=== PATIENT | female | born 1955 | race African-American/Black ===

== ENCOUNTER 2017-01-07 11:48 | Emergency (ER) | payer MEDICAID | END 2017-01-07 13:54 | disposition home or self-care (01) | LOC: D.ER 11:48 | DX: J20.9 Acute bronchitis, unspecified (principal); J01.90 Acute sinusitis, unspecified; F17.200 Nicotine dependence, unspecified, uncomplicated ==

== ENCOUNTER 2017-01-12 10:06 | Emergency (ER) | payer MEDICAID | END 2017-01-12 13:36 | disposition home or self-care (01) | LOC: D.ER 10:06 | DX: J20.9 Acute bronchitis, unspecified (principal); J01.90 Acute sinusitis, unspecified; I10 Essential (primary) hypertension; F17.200 Nicotine dependence, unspecified, uncomplicated ==

== ENCOUNTER 2018-03-31 10:50 | Emergency (ER) | payer MEDICAID ==
[2018-03-31 12:21] LABS: BASOPHILS 0.1 % (0-2); EOSINOPHILS 0.1 % (0-7); HEMATOCRIT 34.2 % (36.0-48.0); HEMOGLOBIN 10.8 g/dL (12-16); IMMATURE GRANULOCYTES 0.3 % (0-5); LYMPHOCYTES 6.7 % (15-50); MCH 24.9 pg (26.0-34.0); MCHC 31.6 g/dL (31.0-37.0); MCV 78.8 fL (80.0-100.0); MEAN PLATELET VOLUME 9.3 fL (7.4-10.4); MONOCYTES 9.2 % (2-11); NEUTROPHILS 83.6 % (40-80); PLATELET COUNT 239 10x3/uL (130-400); RBC 4.34 10x6/uL (4.00-5.40); RDW 13.7 % (11.5-14.5); WBC 15.9 10x3/uL (4.8-10.8)
[2018-03-31 12:34] LABS: ALBUMIN 3.1 g/dL (3.4-5.0); ALKALINE PHOSPHATASE 76 U/L (46-116); ALT (SGPT) 19 U/L (10-68); BILIRUBIN - TOTAL 0.82 mg/dL (0.2-1.3); CALC OSMOLALITY 269 mosm/kg (275-300); CALCIUM 8.8 mg/dL (8.5-10.1); CARBON DIOXIDE 29.5 mmol/L (21.0-32.0); CHLORIDE - SERUM 103 mmol/L (98-107); CREATININE - SERUM 0.7 mg/dL (0.6-1.3); GLUCOSE 92 mg/dL (74-106); POTASSIUM - SERUM 3.2 mmol/L (3.5-5.1); PROTEIN - SERUM 7.1 g/dL (6.4-8.2); SODIUM 136 mmol/L (136-145); UREA NITROGEN 8 mg/dL (7-18); eGFR NON AFRICAN AMERICAN 90 mL/min (90-120)
[2018-04-07 15:25] LABS: AEROBE ID Final report (())
== END 2018-03-31 15:30 | disposition critical access hospital (66) ==
LOC: D.ER 10:50
PROVIDERS: Physician Assistant
DX: J03.90 Acute tonsillitis, unspecified (principal); J36 Peritonsillar abscess; E87.6 Hypokalemia; K11.5 Sialolithiasis; I10 Essential (primary) hypertension

== ENCOUNTER 2018-04-14 11:48 | Emergency (ER) | payer MEDICAID | END 2018-04-14 13:39 | disposition home or self-care (01) | LOC: D.ER 11:48 | DX: J06.9 Acute upper respiratory infection, unspecified (principal); J20.9 Acute bronchitis, unspecified; I10 Essential (primary) hypertension ==

== ENCOUNTER 2018-06-12 09:52 | Emergency (ER) | payer MEDICAID ==
[~2018-06-12] VITALS: Ht 160 cm; Wt 63.6 kg
[2018-06-12 09:55] VITALS: Ht 160 cm; Wt 63.6 kg
[2018-06-12] MEDS ORDERED: TORADOL10 MG PO (11:10)
[2018-06-12 11:34] VITALS: BP 124/96
== END 2018-06-12 11:34 | disposition home or self-care (01) ==
LOC: D.ER 09:52
DX: S92.101A Unspecified fracture of right talus, initial encounter for closed fracture (principal); X50.1XXA Overexertion from prolonged static or awkward postures, initial encounter; Y93.89 Activity, other specified; Y92.019 Unspecified place in single-family (private) house as the place of occurrence of the external cause

== ENCOUNTER 2018-07-15 10:07 | Emergency (ER) | payer MEDICAID ==
[~2018-07-15] VITALS: Ht 160 cm; Wt 61.4 kg
[~2018-07-15 10:07] MED LIST: TORADOL10 MG PO
[2018-07-15 10:12] VITALS: Ht 160 cm; Wt 61.4 kg
[2018-07-15] MEDS ORDERED: AUGMENTIN 875-11 TAB PO (11:06)
[2018-07-15] MEDS ORDERED: NORCO 7.5/325 T1 TA1 PO (11:06)
[2018-07-15 11:38] VITALS: BP 181/101
== END 2018-07-15 11:39 | disposition home or self-care (01) ==
LOC: D.ER 10:07
DX: K12.2 Cellulitis and abscess of mouth (principal); M25.512 Pain in left shoulder

== ENCOUNTER 2018-07-24 10:41 | Emergency (ER) | payer MEDICAID ==
[~2018-07-24] VITALS: Ht 160 cm; Wt 59.1 kg
[~2018-07-24 10:41] MED LIST changes: +AUGMENTIN 875-11 TAB PO; +NORCO 7.5/325 T1 TA1 PO
[2018-07-24 11:01] VITALS: Ht 160 cm; Wt 59.1 kg
[2018-07-24] MEDS ORDERED: TORADOL10 MG PO (16:40)
[2018-07-24 17:02] VITALS: BP 122/088
== END 2018-07-24 17:05 | disposition home or self-care (01) ==
LOC: D.ER 10:41
DX: S60.011A Contusion of right thumb without damage to nail, initial encounter (principal); W23.0XXA Caught, crushed, jammed, or pinched between moving objects, initial encounter; Y93.89 Activity, other specified; Y92.89 Other specified places as the place of occurrence of the external cause; M25.512 Pain in left shoulder

== ENCOUNTER 2018-10-29 14:19 | Emergency (ER) | payer MEDICAID | END 2018-10-29 16:54 | disposition home or self-care (01) | LOC: D.ER 14:19 | DX: H66.91 Otitis media, unspecified, right ear (principal); J02.9 Acute pharyngitis, unspecified ==

== ENCOUNTER 2019-06-02 13:55 | Emergency (ER) | payer MEDICAID ==
[~2019-06-02] VITALS: Ht 160 cm; Wt 56.8 kg
[2019-06-02 14:00] VITALS: Ht 160 cm; Wt 56.8 kg
[2019-06-02] MEDS ORDERED: NAPROSYN500 MG PO (14:59)
[2019-06-02] MEDS ORDERED: CYCLOBENZAPRINE10 MG PO (14:59)
[2019-06-02 15:43] VITALS: BP 178/107
== END 2019-06-02 15:43 | disposition home or self-care (01) ==
LOC: D.ER 13:55
DX: M25.512 Pain in left shoulder (principal); M25.511 Pain in right shoulder; I10 Essential (primary) hypertension

== ENCOUNTER 2019-12-03 08:29 | Emergency (ER) | payer MEDICAID ==
[~2019-12-03] VITALS: Ht 160 cm; Wt 56.8 kg
[~2019-12-03 08:29] MED LIST changes: +CYCLOBENZAPRINE10 MG PO; +NAPROSYN500 MG PO
[2019-12-03 08:49] VITALS: Ht 160 cm; Wt 56.8 kg
[2019-12-03] MEDS ORDERED: CYCLOBENZAPRINE10 MG PO (09:15)
[2019-12-03] MEDS ORDERED: MEDROL DOSE PACK4 MG PO (09:15)
[2019-12-03] MEDS ORDERED: MECLIZINE HCL25 MG PO (09:15)
[2019-12-03 09:39] LABS: BASOPHILS 0.3 % (0-2); EOSINOPHILS 0.6 % (0-7); HEMATOCRIT 35.2 % (36.0-48.0); HEMOGLOBIN 11.1 g/dL (12-16); IMMATURE GRANULOCYTES 0.3 % (0-5); LYMPHOCYTES 23.8 % (15-50); MCH 24.5 pg (26.0-34.0); MCHC 31.5 g/dL (31.0-37.0); MCV 77.7 fL (80.0-100.0); MEAN PLATELET VOLUME 8.9 fL (7.4-10.4); RBC 4.53 10x6/uL (4.00-5.40); RDW 13.9 % (11.5-14.5); WBC 6.2 10x3/uL (4.8-10.8)
[2019-12-03 09:42] LABS: PLATELET COUNT 292 10x3/uL (130-400)
[2019-12-03 09:53] LABS: APTT 34.3 SECONDS (22.8-39.4); INR 0.99 (0.85-1.17); PROTIME 13.1 SECONDS (11.6-15.0)
[2019-12-03 09:55] LABS: CALC OSMOLALITY 284 mosm/kg (275-300); CALCIUM 8.7 mg/dL (8.5-10.1); CARBON DIOXIDE 27.3 mmol/L (21.0-32.0); CHLORIDE - SERUM 107 mmol/L (98-107); CREATININE - SERUM 0.9 mg/dL (0.6-1.3); GLUCOSE 102 mg/dL (74-106); POTASSIUM - SERUM 3.7 mmol/L (3.5-5.1); SODIUM 142 mmol/L (136-145); UREA NITROGEN 19 mg/dL (7-18); eGFR NON AFRICAN AMERICAN 67 mL/min (90-120)
[2019-12-03 10:10] LABS: ALBUMIN 3.1 g/dL (3.4-5.0); ALKALINE PHOSPHATASE 101 U/L (46-116); ALT (SGPT) 22 U/L (10-68); BILIRUBIN - TOTAL 0.29 mg/dL (0.2-1.3); CKMB 1.4 U/L (0.0-3.6); CREATINE KINASE 100 UL (21-215); MAGNESIUM - SERUM 1.8 mg/dL (1.8-2.4); TROPONIN-I < 0.017 ng/mL (0.000-0.060)
[2019-12-03 11:00] VITALS: BP 120/79
== END 2019-12-03 11:00 | disposition home or self-care (01) ==
LOC: D.ER 08:29
PROVIDERS: Family Medicine
DX: R42 Dizziness and giddiness (principal); G89.29 Other chronic pain; M06.9 Rheumatoid arthritis, unspecified; I10 Essential (primary) hypertension

== ENCOUNTER 2020-03-05 20:16 | Emergency (ER) | payer MEDICAID ==
[~2020-03-05] VITALS: Ht 160 cm; Wt 50.0 kg
[~2020-03-05 20:16] MED LIST changes: +MECLIZINE HCL25 MG PO; +MEDROL DOSE PACK4 MG PO
[2020-03-05 20:18] VITALS: Ht 160 cm; Wt 50.0 kg
[2020-03-05 20:55] LABS: BASOPHILS 0.3 % (0-2); EOSINOPHILS 0.4 % (0-7); HEMATOCRIT 33.9 % (36.0-48.0); HEMOGLOBIN 10.5 g/dL (12-16); IMMATURE GRANULOCYTES 0.3 % (0-5); LYMPHOCYTES 21.8 % (15-50); MCH 24.6 pg (26.0-34.0); MCV 79.4 fL (80.0-100.0); MEAN PLATELET VOLUME 9.1 fL (7.4-10.4); MONOCYTES 11.1 % (2-11); NEUTROPHILS 66.1 % (40-80); PLATELET COUNT 279 10x3/uL (130-400); RBC 4.27 10x6/uL (4.00-5.40); RDW 14.2 % (11.5-14.5); WBC 7.1 10x3/uL (4.8-10.8)
[2020-03-05 21:09] LABS: CALCIUM 8.8 mg/dL (8.5-10.1); CARBON DIOXIDE 30.1 mmol/L (21.0-32.0); CREATININE - SERUM 0.9 mg/dL (0.6-1.3); POTASSIUM - SERUM 3.1 mmol/L (3.5-5.1)
[2020-03-05 21:11] LABS: INR 0.94 (0.85-1.17); PROTIME 12.5 SECONDS (11.6-15.0)
[2020-03-05 21:14] LABS: ALBUMIN 3.4 g/dL (3.4-5.0); BILIRUBIN - TOTAL 0.45 mg/dL (0.2-1.3); PROTEIN - SERUM 6.8 g/dL (6.4-8.2)
[2020-03-05] MEDS ORDERED: HYDROCODON-ACE1 EAC2 PO (23:05)
[2020-03-05 23:45] VITALS: BP 142/77
== END 2020-03-05 23:45 | disposition home or self-care (01) ==
LOC: D.ER 20:16
PROVIDERS: Family Medicine
DX: S00.01XA Abrasion of scalp, initial encounter (principal); Y08.89XA Assault by other specified means, initial encounter; Y93.9 Activity, unspecified; Y92.9 Unspecified place or not applicable; I10 Essential (primary) hypertension; Z72.0 Tobacco use

== ENCOUNTER 2020-05-04 14:30 | Emergency (ER) | payer MEDICAID ==
[~2020-05-04] VITALS: Ht 160 cm; Wt 50.0 kg
[~2020-05-04 14:30] MED LIST changes: +HYDROCODON-ACE1 EAC2 PO
[2020-05-04 14:39] VITALS: Ht 160 cm; Wt 50.0 kg
[2020-05-04] MEDS ORDERED: NAPROSYN500 MG PO (15:03)
[2020-05-04 15:12] VITALS: BP 140/89
== END 2020-05-04 15:12 | disposition home or self-care (01) ==
LOC: D.ER 14:30
DX: S40.022A Contusion of left upper arm, initial encounter (principal); S46.312A Strain of muscle, fascia and tendon of triceps, left arm, initial encounter; I10 Essential (primary) hypertension; W19.XXXA Unspecified fall, initial encounter; Y93.9 Activity, unspecified; Y92.9 Unspecified place or not applicable

== ENCOUNTER 2020-08-01 11:20 | Emergency (ER) | payer MEDICAID ==
[~2020-08-01] VITALS: Ht 160 cm; Wt 50.0 kg
[2020-08-01 11:51] VITALS: Ht 160 cm; Wt 50.0 kg
[2020-08-01 12:36] LABS: BASOPHILS 0.2 % (0-2); EOSINOPHILS 1.2 % (0-7); HEMATOCRIT 33.7 % (36.0-48.0); HEMOGLOBIN 10.6 g/dL (12-16); IMMATURE GRANULOCYTES 0.1 % (0-5); LYMPHOCYTES 12.9 % (15-50); MCH 24.2 pg (26.0-34.0); MCHC 31.5 g/dL (31.0-37.0); MCV 76.9 fL (80.0-100.0); MEAN PLATELET VOLUME 9.4 fL (7.4-10.4); MONOCYTES 9.5 % (2-11); NEUTROPHILS 76.1 % (40-80); RBC 4.38 10x6/uL (4.00-5.40); RDW 13.9 % (11.5-14.5); WBC 8.3 10x3/uL (4.8-10.8)
[2020-08-01 12:40] LABS: PLATELET COUNT 349 10x3/uL (130-400)
[2020-08-01 12:44] LABS: ANION GAP 9.5 mmol/L (8-16); CALCIUM 9.3 mg/dL (8.5-10.1); CARBON DIOXIDE 29.5 mmol/L (21.0-32.0); CREATININE - SERUM 0.9 mg/dL (0.6-1.3)
[2020-08-01 12:49] LABS: ALBUMIN 3.3 g/dL (3.4-5.0); BILIRUBIN - TOTAL 0.72 mg/dL (0.2-1.3)
[2020-08-01] MEDS ORDERED: CLINDAMYCIN HC300 MG PO (16:12)
[2020-08-01 16:26] VITALS: BP 142/89
== END 2020-08-01 17:02 | disposition home or self-care (01) ==
LOC: D.ER 11:20
PROVIDERS: Family Medicine
DX: K11.20 Sialoadenitis, unspecified (principal); K11.5 Sialolithiasis; I10 Essential (primary) hypertension

== ENCOUNTER 2020-08-22 12:04 | Emergency (ER) | payer MEDICAID ==
[~2020-08-22] VITALS: Ht 160 cm; Wt 49.5 kg
[~2020-08-22 12:04] MED LIST changes: +CLINDAMYCIN HC300 MG PO
[2020-08-22 12:32] VITALS: Ht 160 cm; Wt 49.5 kg
[2020-08-22] MEDS ORDERED: AUGMENTIN 875-11 TAB PO (13:37)
[2020-08-22] MEDS ORDERED: DICLOFENAC SODI50 MG PO (13:37)
[2020-08-22 14:03] VITALS: BP 152/104
== END 2020-08-22 14:37 | disposition home or self-care (01) ==
LOC: D.ER 12:04
DX: K11.20 Sialoadenitis, unspecified (principal); I10 Essential (primary) hypertension; Z72.0 Tobacco use

== ENCOUNTER 2021-05-10 10:15 | Emergency (ER) | payer MEDICAID ==
[~2021-05-10] VITALS: Ht 160 cm; Wt 56.8 kg
[~2021-05-10 10:15] MED LIST changes: +DICLOFENAC SODI50 MG PO
[2021-05-10 10:23] VITALS: Ht 160 cm; Wt 56.8 kg
[2021-05-10 10:47] LABS: BASOPHILS 0.9 % (0-2); EOSINOPHILS 1.6 % (0-7); HEMATOCRIT 35.4 % (36.0-48.0); HEMOGLOBIN 11.2 g/dL (12-16); MCH 24.6 pg (26.0-34.0); MCHC 31.5 g/dL (31.0-37.0); MEAN PLATELET VOLUME 7.1 fL (7.4-10.4); MONOCYTES 13.7 % (2-11); NEUTROPHILS 56.8 % (40-80); PLATELET COUNT 294 10x3/uL (130-400); RBC 4.53 10x6/uL (4.00-5.40); RDW 14.3 % (11.5-14.5); WBC 5.4 10x3/uL (4.8-10.8)
[2021-05-10 10:49] LABS: HCG URINE NEGATIVE (NEGATIVE)
[2021-05-10 10:50] LABS: BILIRUBIN NEGATIVE (NEGATIVE); KETONE NEGATIVE mg/dL (< 1+); NITRITE NEGATIVE (NEGATIVE); PH 6.5 (5.0-8.0); UROBILINOGEN NORMAL mg/dL (< 2)
[2021-05-10 11:00] LABS: UDS - AMPHET POSITIVE QUAL (NEGATIVE); UDS - BARB NEGATIVE QUAL (NEGATIVE); UDS - BENZO NEGATIVE QUAL (NEGATIVE); UDS - COCAINE POSITIVE QUAL (NEGATIVE); UDS - OPIATE NEGATIVE QUAL (NEGATIVE); UDS - PCP NEGATIVE QUAL (NEGATIVE); UDS - THC POSITIVE QUAL (NEGATIVE)
[2021-05-10 11:04] LABS: CALC OSMOLALITY 286 mosm/kg (275-300); CALCIUM 8.3 mg/dL (8.5-10.1); CARBON DIOXIDE 27.6 mmol/L (21.0-32.0); CHLORIDE - SERUM 111 mmol/L (98-107); CREATININE - SERUM 0.8 mg/dL (0.6-1.3); GLUCOSE 95 mg/dL (74-106); POTASSIUM - SERUM 3.5 mmol/L (3.5-5.1); SODIUM 144 mmol/L (136-145); UREA NITROGEN 13 mg/dL (7-18); eGFR NON AFRICAN AMERICAN 77 mL/min (90-120)
[2021-05-10 11:10] LABS: ALBUMIN 3.2 g/dL (3.4-5.0); ALKALINE PHOSPHATASE 119 U/L (30-120); ALT (SGPT) 27 U/L (10-68); BILIRUBIN - TOTAL 0.32 mg/dL (0.2-1.3); MAGNESIUM - SERUM 1.7 mg/dL (1.8-2.4); PROTEIN - SERUM 6.7 g/dL (6.4-8.2)
[2021-05-10] MEDS ORDERED: ACETAMINOPHEN500 M1 PO (11:57)
[2021-05-10] MEDS ORDERED: CYCLOBENZAPRINE10 MG PO (11:57)
[2021-05-10] MEDS ORDERED: IBUPROFEN800 MG PO (11:57)
[2021-05-10 12:06] VITALS: BP 141/92
== END 2021-05-10 12:11 | disposition home or self-care (01) ==
LOC: D.ER 10:15
PROVIDERS: Family Medicine
DX: M25.512 Pain in left shoulder (principal); M79.18 Myalgia, other site; I10 Essential (primary) hypertension